=== PATIENT | female | born 1995 | race Caucasian/White ===

== ENCOUNTER 2016-07-06 16:04 | Emergency (ER) | payer SELFPAY ==
[2016-07-06 16:11] VITALS: BP 114/84
[2016-07-06] MEDS ORDERED: DIPHTH,PERTUSS(ACELL),TET VAC 0.5 ML VIAL IM ONE ×2 (16:14→16:28)
[2016-07-06] MEDS ORDERED: LIDOCAINE/PRILOCAINE 1 APPL KIT TP ONE ×2 (16:24→16:28)
[2016-07-06] MEDS ORDERED: PROMETHAZINE HCL 25 MG/ML AMPUL IM ONE (16:24)
[2016-07-06] MEDS ORDERED: NORMAL SALINE 1,000 ML IV ONE (16:24)
[2016-07-06] MEDS ORDERED: MEPERIDINE HCL/PF 75 MG/ML SYRG IM ONE (16:24)
[2016-07-06] MEDS ORDERED: MEPERIDINE HCL/PF 75 MG/ML SYRG ONE (16:27)
[2016-07-06] MEDS ORDERED: PROMETHAZINE HCL 25 MG/ML AMPUL ONE (16:28)
[2016-07-06] MEDS ORDERED: LORazepam 1 MG TABLET PO ONE (16:45)
--- NOTE | 2016-07-06 16:45 | ERNOTE ---
Medical Problem HPI - Narrative Date of Service: 07/06/16 - General Chief Complaint: Laceration Time Seen by Provider: 07/06/16 16:17 Source: patient Exam Limitations: no limitations - Immun/Allergies/Home Medications Immunizations: IMMUNIZATION HX Immunizations Up to Date Yes History of Influenza Vaccine Yes Allergies/Adverse Reactions: Allergies No Known Allergies Allergy (Verified 07/06/16 16:11) Home Medications: HOME MEDICATIONS NK [No Home Medication] 07/06/16 [Last Taken Unknown] - History of Present History Narrative: Was helping her friend move just before coming to the [facility] ER today. She accidentally got cut on a piece of metal. Painful cut on her volar forearm. Says she can't move her hand or fingers, but with persistence she was able to flex and extend her wrist and move all of her fingers. Timing: other Severity: moderate Modifying Factors - (Improves): Present: rest Modifying Factors - (Worsens): Present: movement Review of Systems - Review of Systems Constitutional: Present: no symptoms reported EYE: Present: no symptoms reported ENT: Present: no symptoms reported Respiratory: Present: no symptoms reported Cardiology: Present: no symptoms reported Gastrointestinal/Abdominal: Present: no symptoms reported Genitourinary: Present: no symptoms reported Musculoskeletal: Present: no symptoms reported Skin: Present: See HPI Neurological: Present: no symptoms reported Endocrine: Present: no symptoms reported Hematologic/Lymphatic: Present: no symptoms reported Psych: Present: no symptoms reported All Other Systems: All systems neg except as marked - Patient's Past Medical History Patient History - Medical: No pertinent hx Patient History - Cardiac/Respiratory: No pertinent hx Patient History - Cancer: No Hx of Cancer Patient History - Surgical Procedures: No surgical history Patient History - Other: None - Family History Brother Family History - Medical: Diabetes Type 1 Family History - Cardiac/Respiratory: No pertinent hx - Social History Psych History: Hx of Anxiety, Hx of Depression Smoking Status: Current every day smoker Have you smoked in the past 12 months: Yes Do you dip or chew tobacco: No Alcohol Use: occasionally - Immunizations Immunizations Up to Date: Yes History of Influenza Vaccine: Yes Physical Exam - Physical Exam General Appearance: Present: wd/wn, alert, crying Eye Exam: Normal inspection: bilateral, PERRL: bilateral, EOMI: bilateral Ears, Nose, Throat: Present: normal ENT inspection, hearing grossly normal Neck: Present: normal inspection Respiratory: Present: no respiratory distress Cardiovascular/Chest: Present: regular rate, rhythm Gastrointestinal/Abdominal: Present: normal bowel sounds, nontender, nondistended, soft, no organomegaly Back Exam: Present: normal inspection Extremity Exam: Present: other - 5 cm linear cut volar left forearm, down to fascia, not actively bleeding, not contaminated grossly. Neurological Exam: Present: alert, oriented Skin Exam: Present: normal color, warm/dry ED Progress - Vital Signs Patient's Vital Signs:: I have reviewed the patient's vital signs. Vital Signs: Vital Signs 07/06/16 16:08 Temperature 36 C L Pulse Rate 102 H Respiratory 14 Rate Blood Pressure 114/84 O2 Sat by Pulse 100 Oximetry - X-Ray X-Ray #1 X-Ray: forearm Interpretation: Interp. by me - no bony injury - Progress/Reassessment Chief Complaint: Laceration Procedures Left Volar Arm Anesthesia: Lidocaine w/ Epi I & D Prep: betadine prep, sterile drapes applied Length of Repair/Wound (cm): 5 Wound's Depth/Shape: linear - down to fascia Wound Explored: clean Wound Intervention: irrigated w/saline Distal NVT: neuro/vasc intact, no tendon injury Suture Size/Type: 3-0, silk Number of Sutures: 12 Deep Layer Suture Size/Type: 3-0, other - vicryl Number Deep Layer Sutures: 10 Estimated blood loss (ml): 0 Wound Dressing: sterile dressing applied Complications: Pt jessee procedure well Departure - Departure Clinical Impression: Laceration Disposition: Home self-care Condition: Good Instructions: Laceration Care, Adult, [id number] Additional Instructions: Keep the dressing clean dry intact and in place until you see your health care provider in 3 days. Referrals: Ashley Mejía ARNP [Primary Care Provider] -
[2016-07-06] MEDS ORDERED: LORazepam 1 MG TABLET ONE (16:47)
--- OUTSIDE RECORDS SUMMARY | 2016-07-06 17:05 | XMS REPORT | Continuity of Care Document ---
:1995 Author Organization [facility] ([facility]) Address [address] [place] [address] Phone [phone] Care Team Providers Name Role Phone Unavailable Primary Care Provider Unavailable Source Comments This disclosure is being made pursuant to the Care Everywhere program, applicable federal and state laws, and may not contain all informaitonavailable regarding this patient.[facility] ([facility]) Active Allergies and Adverse Reactions Not on File Current Medications Not on file Active Problems Problem Noted Date Attention deficit disorder with hyperactivity(314.01) 10/31/2000 Social History Tobacco Use Types Packs/Day Years Used Date Never Assessed Plan of Care Health Maintenance Due Date Last Done Comments Hepatitis B Vaccine (1 of 3 - Primary Series) 1994 HPV Vaccine (1 of 3 - Female/Unknown 3 Dose Series) 2005 Tdap Vaccine 2005 Cervical Cancer Screening 2012 Lipid Disorder Screening 2012 MMR Vaccine 2012 Td Vaccine 2012 Varicella Vaccine (1 of 2 - Adult - No Evidence of 2012 Immunity) Influenza Vaccine: Seasonal (#1) 12/18/2015 Results from Last 3 Months Not on file
[2016-07-06] MEDS ORDERED: LIDOCAINE HCL/EPINEPHRINE 30 ML VIAL IJ ONE (18:13)
== END 2016-07-06 19:02 | disposition home or self-care (01) ==
LOC: ER 16:04
PROC: 0JQH0ZZ Repair Left Lower Arm Subcutaneous Tissue and Fascia, Open Approach (ICD-10-PCS; principal; 2016-07-06)
DX: S51.812A Laceration without foreign body of left forearm, initial encounter (principal); X58.XXXA Exposure to other specified factors, initial encounter; Y93.89 Activity, other specified; Z23 Encounter for immunization

== ENCOUNTER 2017-01-18 19:56 | Emergency (ER) | payer OTHER ==
[2017-01-18] MEDS ORDERED: LIDOCAINE HCL/EPINEPHRINE 30 ML VIAL IJ ONE (20:33)
--- NOTE | 2017-01-18 21:08 | ERNOTE ---
Upper Extremity HPI - Narrative Date of Service: 01/18/17 - General Extremities Pain Location: forearm: left Time Seen by Provider: 01/18/17 20:09 Source: patient, RN notes reviewed Exam Limitations: no limitations - Immun/Allergies/Home Medications Immunizations: IMMUNIZATION HX Immunizations Up to Date Yes History of Influenza Vaccine No Hx Pneumococcal Vaccination No Allergies/Adverse Reactions: Allergies Allergy/AdvReac Type Severity Reaction Status Date / Time No Known Allergies Allergy Verified 07/06/16 16:11 Home Medications: HOME MEDICATIONS Citalopram Hydrobromide [Citalopram HBr] 10 mg PO 01/18/17 [Last Taken Unknown] Nortriptyline HCl 10 mg PO 01/18/17 [Last Taken Unknown] Prazosin HCl [Minipress] 3 mg PO HS 01/18/17 [Last Taken Unknown] Sertraline HCl [Zoloft] 25 mg PO DAILY 01/18/17 [Last Taken Unknown] - History of Present Illness Narrative: 21 y/o female ambulatory to the ED for a laceration to her left volar forearm. She reports that she was wresting with a friend when she cut her arm on a metal porch railing. Occurred: just prior to arrival Location of Incident: home Associated Symptoms: Denies: tingling, weakness, numbness distally Other Injuries: Reports: none Review of Systems - Review of Systems Constitutional: Absent: recent illness, fever, malaise EYE: Present: no symptoms reported ENT: Present: no symptoms reported Respiratory: Present: no symptoms reported Cardiology: Present: no symptoms reported Gastrointestinal/Abdominal: Present: no symptoms reported Genitourinary: Present: no symptoms reported Musculoskeletal: Absent: joint pain, joint swelling Skin: Absent: rash, lesions, change in color Neurological: Absent: weakness, numbness, tingling Endocrine: Present: no symptoms reported Hematologic/Lymphatic: Absent: easy bruising, easy bleeding Psych: Present: no symptoms reported - Patient's Past Medical History Patient History - Medical: No pertinent hx Patient History - Cardiac/Respiratory: No pertinent hx Patient History - Cancer: No Hx of Cancer Patient History - Surgical Procedures: No surgical history Patient History - Other: None LMP (females 10-50): on depo provera - Family History Brother Family History - Medical: Diabetes Type 1 Family History - Cardiac/Respiratory: No pertinent hx - Social History Living Situations: home Psych History: Hx of Anxiety, Hx of Depression Smoking Status: Current every day smoker Cigarettes Packs Per Day: 1 Alcohol Use: occasionally Drug Use: none - Immunizations Immunizations Up to Date: Yes - tetanus vaccine in 2015 Hx Pneumococcal Vaccination: No History of Influenza Vaccine: No Physical Exam - Physical Exam General Appearance: Present: wd/wn, alert, mild distress, anxious Head Exam: Present: normal inspection, no evidence of injury Respiratory: Present: no respiratory distress, no accessory muscle use Cardiovascular/Chest: Present: normal peripheral pulses Extremity Exam: Present: normal except - - left arm laceration, normal range of motion, no edema Neurological Exam: Present: alert, oriented, normal mood/affect, no motor/ sensory deficits Skin Exam: Present: normal color, warm/dry ED Progress - Vital Signs Patient's Vital Signs:: I have reviewed the patient's vital signs. Vital Signs: Vital Signs 01/18/17 20:00 Temperature 37.0 C Pulse Rate 118 H Respiratory 18 Rate Blood Pressure 136/93 O2 Sat by Pulse 98 Oximetry - Progress/Reassessment Chief Complaint: Upper Extremity Injury/Problem Progress:: Improved Procedures Left volar forearm Anesthesia: Lidocaine w/ Epi Length of Repair/Wound (cm): 5 Wound's Depth/Shape: into subcutaneous, linear Wound Explored: clean, to base, in bloodless field, no foreign body Wound Intervention: irrigated w/saline Distal NVT: neuro/vasc intact, no tendon injury Wound Repaired With: sutures Suture Size/Type: 5-0, nylon Number of Sutures: 10 Layer Closure: Simple Wound Dressing: sterile dressing applied Complications: Pt jessee procedure well Departure Clinical Impression: Forearm laceration Qualifiers: Encounter type: initial encounter Laterality: left Qualified Code(s): S51.812A - Laceration without foreign body of left forearm, initial encounter - Departure Disposition: Home Follow Up Needed Condition: Good Instructions: Sutured Wound Care, [id number] Additional Instructions: Keep dressing dry and in place for 48 hours OK to then wash wound gently with soap and water Apply antibiotic ointment twice a day Have sutures removed in 7 to 10 days Referrals: Ashley Mejía ARNP [Primary Care Provider] -
[2017-01-18 21:09] VITALS: BP 111/64
== END 2017-01-18 21:05 | disposition home or self-care (01) ==
LOC: ER 19:56
PROC: 0JQH0ZZ Repair Left Lower Arm Subcutaneous Tissue and Fascia, Open Approach (ICD-10-PCS; principal; 2017-01-18)
DX: S51.812A Laceration without foreign body of left forearm, initial encounter (principal); F17.200 Nicotine dependence, unspecified, uncomplicated

== ENCOUNTER 2017-01-24 09:54 | Emergency (ER) | payer OTHER ==
[2017-01-24 10:06] VITALS: BP 117/72
--- NOTE | 2017-01-24 10:08 | ERNOTE ---
Medical Problem HPI - Narrative Date of Service: 01/24/17 - General Chief Complaint: Screening, Suture/Wound Time Seen by Provider: 01/24/17 10:07 Source: patient, RN notes reviewed, old records Exam Limitations: no limitations - Immun/Allergies/Home Medications Immunizations: IMMUNIZATION HX Immunizations Up to Date Yes: tetanus vaccine in 2014 History of Influenza Vaccine No Hx Pneumococcal Vaccination No Allergies/Adverse Reactions: Allergies No Known Allergies Allergy (Verified 01/24/17 10:06) Home Medications: HOME MEDICATIONS Citalopram Hydrobromide [Citalopram HBr] 10 mg PO DAILY 01/18/17 [Last Taken Unknown] Nortriptyline HCl 10 mg PO DAILY 01/18/17 [Last Taken Unknown] Prazosin HCl [Minipress] 3 mg PO HS 01/18/17 [Last Taken Unknown] Sertraline HCl [Zoloft] 25 mg PO DAILY 01/18/17 [Last Taken Unknown] - History of Present History Narrative: 21 y/o female presents to the ED for a check of her left forearm wound. I saw the patient on 01/18/17 for the laceration. She cut herself on a metal porch railing. I sutured the wound. She reports that she had redness around the wound yesterday but this has improved today. She reports itching around the wound. Date (Duration): 01/18/17 Review of Systems - Review of Systems Constitutional: Absent: fever, chills, malaise EYE: Present: no symptoms reported ENT: Present: no symptoms reported Respiratory: Present: no symptoms reported Cardiology: Present: no symptoms reported Gastrointestinal/Abdominal: Absent: nausea, vomiting Genitourinary: Present: no symptoms reported Musculoskeletal: Absent: joint pain, joint swelling Skin: Absent: rash, lesions, lumps Neurological: Absent: weakness, numbness, tingling Endocrine: Present: no symptoms reported Hematologic/Lymphatic: Present: no symptoms reported Psych: Present: no symptoms reported - Patient's Past Medical History Patient History - Medical: No pertinent hx Patient History - Cardiac/Respiratory: No pertinent hx Patient History - Cancer: No Hx of Cancer Patient History - Surgical Procedures: No surgical history Patient History - Other: None - Family History Brother Family History - Medical: Diabetes Type 1 Family History - Cardiac/Respiratory: No pertinent hx - Social History Living Situations: home Psych History: Hx of Anxiety, Hx of Depression Smoking Status: Current every day smoker Have you smoked in the past 12 months: Yes Alcohol Use: occasionally Drug Use: none - Immunizations Immunizations Up to Date: Yes - tetanus vaccine in 2015 Hx Pneumococcal Vaccination: No History of Influenza Vaccine: No Physical Exam - Physical Exam General Appearance: Present: wd/wn, alert, no apparent distress Respiratory: Present: no respiratory distress, no accessory muscle use Cardiovascular/Chest: Present: normal peripheral pulses Extremity Exam: Present: normal range of motion, no edema. Absent: joint redness, joint swelling Neurological Exam: Present: alert, oriented, normal mood/affect, no motor/ sensory deficits Skin Exam: Present: normal color, warm/dry, other - Left forearm laceration healing well, sutures intact, wound well approximated without erythema or drainage ED Progress - Vital Signs Patient's Vital Signs:: I have reviewed the patient's vital signs. Vital Signs: Vital Signs 01/24/17 10:02 Temperature 36.2 C L Pulse Rate 88 Respiratory 12 Rate Blood Pressure 117/72 O2 Sat by Pulse 98 Oximetry - Progress/Reassessment Chief Complaint: Screening, Suture/Wound Progress:: Improved Departure - Departure Clinical Impression: Visit for wound check Disposition: Home Follow Up Needed Condition: Good Instructions: Sutured Wound Care, [id number] Additional Instructions: Apply antibiotic ointment or vaseline to wound as needed to keep it from getting too dry Continue to clean wound as needed (at least twice a day) with mild soap and water Have sutures removed Friday or Friday Referrals: Ashley Mejía ARNP [Primary Care Provider] -
== END 2017-01-24 10:17 | disposition home or self-care (01) ==
LOC: ER 09:54
DX: S51.812D Laceration without foreign body of left forearm, subsequent encounter (principal); W45.8XXD Other foreign body or object entering through skin, subsequent encounter; W22.8XXD Striking against or struck by other objects, subsequent encounter; Y92.9 Unspecified place or not applicable; F17.200 Nicotine dependence, unspecified, uncomplicated

== ENCOUNTER 2017-06-12 16:48 | Emergency (ER) | payer MEDICAID, OTHER ==
[2017-06-12] MEDS ORDERED: KETOROLAC TROMETHAMINE 30 MG/ML VIAL IM ONE (17:57)
[2017-06-12] MEDS ORDERED: DEXAMETHASONE SODIUM PHOSPHATE 10 MG/ML VIAL IM ONE (17:57)
[2017-06-12] MEDS ORDERED: DEXAMETHASONE SODIUM PHOSPHATE 10 MG/ML VIAL ONE (18:02)
[2017-06-12] MEDS ORDERED: KETOROLAC TROMETHAMINE 30 MG/ML VIAL ONE (18:02)
--- NOTE | 2017-06-12 18:08 | ERNOTE ---
ENT HPI Date of Service: 06/12/17 Time Seen by Provider: 06/12/17 17:52 Source: patient Exam Limitations: no limitations - Immun/Allergies/Home Medications Immunizations: IMMUNIZATION HX Immunizations Up to Date Yes History of Influenza Vaccine Yes Hx Pneumococcal Vaccination No Allergies/Adverse Reactions: Allergies Allergy/AdvReac Type Severity Reaction Status Date / Time No Known Allergies Allergy Verified 06/12/17 17:10 Home Medications: HOME MEDICATIONS NK [No Home Medication] 06/12/17 [Last Taken Unknown] - History of Present Illness Narrative: Patient presents to the ED with sore throat for a week. She relates it has gotten gradually worse. No clear fever but she is not sure. Hurts to swallow, both sides equally. No MADDOX, no cough. Denies CP or SOB. Has not seen anyone else for this. Not sure of any sick contacts. Pain can be severe at times ENT Location: Present: throat Prearrival Treatment: Present: no prearrival treatment Modifying Factors - Improves: Reports: nothing Modifying Factors - Worsens: Reports: other - swallowing Associated Symptoms - ENT: Reports: sore throat. Denies: cough, voice change, drooling, tooth pain, jaw swelling Prior Treament: Denies: recently seen Review of Systems - Review of Systems Constitutional: Absent: fever EYE: Present: no symptoms reported ENT: Present: See HPI Respiratory: Absent: shortness of breath, cough Cardiology: Present: no symptoms reported Gastrointestinal/Abdominal: Absent: vomiting, abdominal pain Skin: Absent: rash Neurological: Absent: weakness - Patient's Past Medical History Patient History - Medical: No pertinent hx Patient History - Cardiac/Respiratory: No pertinent hx Patient History - Cancer: No Hx of Cancer Patient History - Surgical Procedures: No surgical history Patient History - Other: None - Family History Brother Family History - Medical: Diabetes Type 1 Family History - Cardiac/Respiratory: No pertinent hx - Social History Living Situations: home Psych History: Hx of Anxiety, Hx of Depression Smoking Status: Current every day smoker Alcohol Use: none Drug Use: none - Immunizations Immunizations Up to Date: Yes Hx Pneumococcal Vaccination: No History of Influenza Vaccine: Yes Physical Exam - Physical Exam General Appearance: Present: alert, no apparent distress, other - non-toxic, no distress, speaking in full sentences Head Exam: Present: normal inspection, no evidence of injury Eye Exam: Normal inspection: bilateral, PERRL: bilateral Ears, Nose, Throat: Present: pharyngeal erythema, other - No evidence of INFORMATION CODER, RPA or epiglottitis. Absent: pharyngeal swelling, tonsillar exudate, dry mucous membranes Neck: Present: normal inspection, nontender, other - no masses Respiratory: Present: no respiratory distress, normal breath sounds, no accessory muscle use, lungs clear Cardiovascular/Chest: Present: regular rate, rhythm Gastrointestinal/Abdominal: Present: normal bowel sounds, nontender, nondistended, soft Back Exam: Present: normal range of motion Extremity Exam: Present: normal inspection Neurological Exam: Present: alert, normal mood/affect, no motor/sensory deficits , director of quality improvement II-XII nml as tested Skin Exam: Present: normal color, warm/dry ED Progress - Results and Orders Patient's Lab Results:: I have reviewed the patient's lab results. - Vital Signs Patient's Vital Signs:: I have reviewed the patient's vital signs. Vital Signs: Vital Signs 06/12/17 17:08 Temperature 37.2 C Pulse Rate 108 H Respiratory 20 Rate Blood Pressure 110/85 O2 Sat by Pulse 100 Oximetry - Progress/Reassessment Chief Complaint: Sore Throat Progress Note-Subjective: 06/12/17 18:46 Patient left AMA while I was in the room with another patient. Pending Monospot at the time. I will ask nursing to call her to return to complete her evaluation. There was no clinical suggestion of INFORMATION CODER, RPA or epiglottitis. Departure Clinical Impression: Pharyngitis - Departure Disposition: Against medical advice Condition: Undetermined
[2017-06-12 18:28] VITALS: BP 119/74
== END 2017-06-12 18:44 | disposition left against medical advice (07) ==
LOC: ER 16:48
DX: J02.9 Acute pharyngitis, unspecified (principal); F17.200 Nicotine dependence, unspecified, uncomplicated; Z53.21 Procedure and treatment not carried out due to patient leaving prior to being seen by health care provider